=== PATIENT | male | born 1945 | race Caucasian/White ===

== ENCOUNTER 2021-06-03 08:02 | Emergency (ER) | payer MEDICARE, BC ==
[2021-06-03 08:16] VITALS: BP 171/90; PULSE 108
[2021-06-03] MEDS: Ondansetron 4 MG/2 ML SDV IVPUSH ONE (09:06)
[2021-06-03] MEDS: Sodium Chloride 0.9% 10 ML Syringe FLUSH PRN ×2 (09:07→10:18)
[2021-06-03] MEDS: HYDROmorphone 0.5 MG/0.5 ML Syringe IVPUSH ONE (09:07)
[2021-06-03 09:10] LABS: HEMOGLOBIN A1C 8.2 %
[2021-06-03] MEDS: cefTRIAXone 2 GM in Sodium Chloride 0.9% 100 ML IV ONE (09:42)
[2021-06-03] MEDS: Iopamidol 612 MG/ML 50 ML SDV IVPUSH ONE (10:18)
[2021-06-03] MEDS: Iopamidol 612 MG/ML 100 ML Bottle IVPUSH ONE (10:18)
== END 2021-06-03 11:24 | disposition home or self-care (01) ==
LOC: JD.ED 08:02
DX: N39.0 Urinary tract infection, site not specified (principal); N41.9 Inflammatory disease of prostate, unspecified; E78.00 Pure hypercholesterolemia, unspecified; I10 Essential (primary) hypertension; E11.9 Type 2 diabetes mellitus without complications; E66.9 Obesity, unspecified; Z68.43 Body mass index [BMI] 50.0-59.9, adult; Z91.048 Other nonmedicinal substance allergy status; Z79.899 Other long term (current) drug therapy
CPT/HCPCS: 36415; 74177; 80053; 81001; 82977; 83036; 83690; 83735; 83880; 85025; 86140; 87086; 96374; 96375; 99284; J0696; J1170; J2405; Q9967

== ENCOUNTER 2021-06-05 09:23 | Emergency (ER) | payer MEDICARE, BC ==
[2021-06-05 09:37] VITALS: BP 186/88; PULSE 108
[2021-06-05] MEDS ORDERED: Sodium Chloride 0.9% 10 ML Syringe FLUSH PRN (09:58)
== END 2021-06-05 13:10 | disposition home or self-care (01) ==
LOC: JD.ED 09:23
DX: N39.0 Urinary tract infection, site not specified (principal); R33.9 Retention of urine, unspecified; E78.00 Pure hypercholesterolemia, unspecified; I10 Essential (primary) hypertension; E11.9 Type 2 diabetes mellitus without complications; E66.9 Obesity, unspecified; Z68.42 Body mass index [BMI] 45.0-49.9, adult; Z91.048 Other nonmedicinal substance allergy status; Z79.84 Long term (current) use of oral hypoglycemic drugs; Z79.899 Other long term (current) drug therapy; Z87.891 Personal history of nicotine dependence
CPT/HCPCS: 36415; 51702; 74176; 74176-26; 80053; 81001; 83690; 85025; 99284-25

== ENCOUNTER 2021-06-12 09:16 | Emergency (ER) | payer MEDICARE, BC ==
[2021-06-12 09:41] VITALS: BP 133/58; PULSE 106
== END 2021-06-12 10:03 | disposition home or self-care (01) ==
LOC: JD.ED 09:16
DX: T83.098A Other mechanical complication of other urinary catheter, initial encounter (principal); R33.9 Retention of urine, unspecified; E78.00 Pure hypercholesterolemia, unspecified; I10 Essential (primary) hypertension; E11.9 Type 2 diabetes mellitus without complications; N40.0 Benign prostatic hyperplasia without lower urinary tract symptoms; E66.9 Obesity, unspecified; Z68.42 Body mass index [BMI] 45.0-49.9, adult; Z91.048 Other nonmedicinal substance allergy status; Z79.899 Other long term (current) drug therapy; Z79.84 Long term (current) use of oral hypoglycemic drugs
CPT/HCPCS: 99283

== ENCOUNTER 2021-07-05 08:32 | Emergency (ER) | payer MEDICARE, BC ==
[2021-07-05 08:47] VITALS: BP 155/67; PULSE 93
[2021-07-05] MEDS ORDERED: Sodium Chloride 0.9% 10 ML Syringe FLUSH PRN (09:04)
[2021-07-05] MEDS ORDERED: cefTRIAXone 2 GM in Sodium Chloride 0.9% 100 ML IV ONE (09:04)
== END 2021-07-05 10:07 | disposition home or self-care (01) ==
LOC: JD.ED 08:32
DX: T83.098A Other mechanical complication of other urinary catheter, initial encounter (principal); E78.00 Pure hypercholesterolemia, unspecified; I10 Essential (primary) hypertension; N40.0 Benign prostatic hyperplasia without lower urinary tract symptoms; E11.9 Type 2 diabetes mellitus without complications; E66.9 Obesity, unspecified; Z68.30 Body mass index [BMI] 30.0-30.9, adult; Z79.899 Other long term (current) drug therapy; Z91.048 Other nonmedicinal substance allergy status; Z79.84 Long term (current) use of oral hypoglycemic drugs
CPT/HCPCS: 87070; 87077; 87186; 87205; 96365; 99283; J0696; 99284

== ENCOUNTER 2022-07-01 17:08 | Inpatient (IN) | payer MEDICARE, BC ==
[2022-07-01] MEDS ORDERED: Sodium Chloride 0.9% 10 ML Syringe FLUSH PRN (17:24)
[2022-07-01] MEDS ORDERED: Sodium Chloride 0.9% 1,000 ML IV ONE ×5 (17:24→23:02)
[2022-07-01] MEDS ORDERED: Levofloxacin/Dextrose 5%-Water 750 MG in Premix Bag 1 BAG IV ONE (18:23)
[2022-07-02] MEDS ORDERED: Ondansetron 4 MG Tab.DIS PO PRN (06:20)
[2022-07-02] MEDS ORDERED: Sodium Chloride 0.9% 10 ML Syringe FLUSH PRN (06:20)
[2022-07-02] MEDS ORDERED: Acetaminophen 325 MG Tab PO PRN (06:20)
[2022-07-02] MEDS ORDERED: Docusate Sodium 100 MG Cap PO PRN (06:20)
[2022-07-02] MEDS ORDERED: Ondansetron 4 MG/2 ML SDV IV PRN (06:20)
[2022-07-02] MEDS ORDERED: Dextrose 5%-0.45% NaCl 1,000 ML IV SCH (06:30)
[2022-07-02] MEDS ORDERED: Albuterol 6.7 GM Inhaler INH PRN (10:25)
[2022-07-02] MEDS: Insulin Lispro 100 Unit/ML 3 ML KwikPen SUBCUT SCH ×3 (11:39→20:53)
[2022-07-02] MEDS: cefTRIAXone 2 GM in Sodium Chloride 0.9% 100 ML IV SCH (15:14)
[2022-07-02] MEDS: Diltiazem IR 60 MG Tab PO SCH ×2 (15:16→20:41)
[2022-07-02] MEDS: Heparin Sodium 5,000 Units/ML Vial SUBCUT SCH (20:41)
[2022-07-02] MEDS: Rosuvastatin 10 MG Tab PO SCH (20:41)
[2022-07-03] MEDS: Heparin Sodium 5,000 Units/ML Vial SUBCUT SCH ×2 (08:57→20:56)
[2022-07-03] MEDS: Pantoprazole 40 MG Tab.CR PO SCH (08:58)
[2022-07-03] MEDS: Insulin Lispro 100 Unit/ML 3 ML KwikPen SUBCUT SCH ×4 (08:58→20:57)
[2022-07-03] MEDS: Diltiazem IR 60 MG Tab PO SCH ×3 (08:58→20:57)
[2022-07-03] MEDS: cefTRIAXone 2 GM in Sodium Chloride 0.9% 100 ML IV SCH (14:59)
[2022-07-03] MEDS: Rosuvastatin 10 MG Tab PO SCH (20:57)
[2022-07-04] MEDS: Insulin Lispro 100 Unit/ML 3 ML KwikPen SUBCUT SCH (07:38)
[2022-07-04] MEDS: Pantoprazole 40 MG Tab.CR PO SCH (09:25)
[2022-07-04] MEDS: Diltiazem IR 60 MG Tab PO SCH (09:25)
[2022-07-04] MEDS: Heparin Sodium 5,000 Units/ML Vial SUBCUT SCH (09:25)
[2022-07-04 12:26] VITALS: BP 176/87; PULSE 80
== END 2022-07-04 13:06 | disposition home or self-care (01) | DRG 872 ==
LOC: JD.ED 17:08 → JD.MS 07-02 06:20 → UNDOADMIN 07-02 06:52 → JD.MS 07-02 06:52 → UNDODISIN 07-04 13:06
PROVIDERS: ADMIT Hospitalist; ATTEND Hospitalist
DX: A41.9 Sepsis, unspecified organism (principal); N39.0 Urinary tract infection, site not specified; E87.20 Acidosis, unspecified; N17.9 Acute kidney failure, unspecified; E11.9 Type 2 diabetes mellitus without complications; H91.90 Unspecified hearing loss, unspecified ear; E78.00 Pure hypercholesterolemia, unspecified; I10 Essential (primary) hypertension; J45.909 Unspecified asthma, uncomplicated; G47.30 Sleep apnea, unspecified; K21.9 Gastro-esophageal reflux disease without esophagitis; N40.0 Benign prostatic hyperplasia without lower urinary tract symptoms; R65.20 Severe sepsis without septic shock; M19.90 Unspecified osteoarthritis, unspecified site; E66.9 Obesity, unspecified; Z98.49 Cataract extraction status, unspecified eye; Z88.8 Allergy status to other drugs, medicaments and biological substances; Z79.84 Long term (current) use of oral hypoglycemic drugs; Z79.899 Other long term (current) drug therapy; Z87.891 Personal history of nicotine dependence
CPT/HCPCS: 36415; 80048; 80053; 81001; 82947; 83605; 85025; 85610; 86140; 87040; 87086; 96361; 96365; 99284-25; 99285; A9270-GY; J0696; J1644; J1815; J1956; J3490; J7030; J7042

== ENCOUNTER 2022-08-06 07:15 | Emergency (ER) | payer BC, MEDICARE ==
[2022-08-06 07:26] VITALS: BP 150/60; PULSE 98
== END 2022-08-06 09:13 | disposition home or self-care (01) ==
LOC: JD.ED 07:15
DX: N39.0 Urinary tract infection, site not specified (principal); E78.00 Pure hypercholesterolemia, unspecified; K21.9 Gastro-esophageal reflux disease without esophagitis; E11.9 Type 2 diabetes mellitus without complications; E66.9 Obesity, unspecified; J44.9 Chronic obstructive pulmonary disease, unspecified; M19.90 Unspecified osteoarthritis, unspecified site; I11.0 Hypertensive heart disease with heart failure; I50.9 Heart failure, unspecified; Z91.048 Other nonmedicinal substance allergy status
CPT/HCPCS: 81001; 87086; 87088; 87186; 99283; 99284